=== PATIENT | female | born 1970 | race Caucasian/White ===

== ENCOUNTER 2017-10-22 14:05 | Emergency (ER) | payer MEDICAID ==
[2017-10-22 14:13] VITALS: BP 125/88; PULSE 68; RESP 18; TEMP 97.7; O2SAT 97
[2017-10-22] MEDS ORDERED: IPRATROPIUM/ALBUTEROL 3 ML DEYVIAL IH ONE (14:16)
--- NOTE | 2017-10-22 14:49 | EDPHY ---
H & P Time Seen by Provider: 10/22/17 14:10 HPI/ROS: 47-year-old female presents complaining of productive green cough. Patient is a daily smoker. History of COPD. Review of systems As per HPI General no fever no chills no weakness HEENT no eye pain no eye discharge. No eye redness, no sore throat Respiratory positive productive green cough, no shortness of breath Cardiac no chest pain, no peripheral edema GI no abdominal pain, no diarrhea, no constipation, no nausea, no vomiting no flank pain, no hematuria, no dysuria Musculoskeletal no myalgias, no joint pain Heme no easy bruising, no easy bleeding Endo no polyuria, no polydipsia Skin no rashes, no pruritus Neuro no syncope, no dizziness, no headaches Psych is no suicidal ideation, no homicidal ideation Past Medical/Surgical History: COPD Social History: Heavy tobacco use Smoking Status: Current every day smoker Physical Exam: 47-year-old female, harsh coarse cough Alert and oriented nontoxic appearance, no acute distress afebrile Atraumatic normocephalic Extraocular muscles intact, anicteric Nares mild green discharge Oropharynx mild erythema no tonsillar swelling no exudate no uvular deviation, tolerating own secretions Neck supple no lymphadenopathy Lungs scattered wheeze Heart regular rate and rhythm Abdomen normoactive bowel sounds soft nontender Extremities no cyanosis clubbing or edema Skin no rash Constitutional: Initial Vital Signs Temperature (C) 36.5 C 10/22/17 14:11 Heart Rate 68 10/22/17 14:11 Respiratory Rate 18 10/22/17 14:11 Blood Pressure 125/88 H 10/22/17 14:11 O2 Sat (%) 97 10/22/17 14:11 O2 Delivery Mode Room Air Allergies/Adverse Reactions: amoxicillin [Amoxicillin] Allergy (Intermediate, Verified 10/22/17 14:10) Hives azithromycin Allergy (Intermediate, Verified 10/22/17 14:10) Hives cefaclor [From Ceclor] Allergy (Intermediate, Verified 10/22/17 14:10) Hives cefixime [From Suprax] Allergy (Intermediate, Verified 10/22/17 14:10) Hives Penicillins Allergy (Intermediate, Verified 10/22/17 14:10) Hives Sulfa (Sulfonamide Antibiotics) Allergy (Intermediate, Verified 10/22/17 14:10) Hives Home Medications: Medication Instructions Recorded Albuterol 5 mg/ml INH 09/23/16 Albuterol Hfa Anes Only [Proair 2 puffs IH QID PRN #1 mdi 09/23/16 Hfa Icu (*)] Doxycycline Hyclate [Vibramycin 100 mg PO BID #20 cap 10/22/17 100 MG (*)] predniSONE 40 mg PO DAILY #5 tab 10/22/17 Medical Decision Making ED Course/Re-evaluation: Patient seen and evaluated for harsh cough. Impression acute bronchitis History of COPD Plan DuoNeb given in emergency department Patient to continue inhalers Prednisone 40 mg p.o. daily x5 days Doxycycline 100 mg p.o. twice daily times 10 days Follow-up with your regular clinic in 1-2 weeks Differential Diagnosis: Differential diagnosis considered but not limited to: URI, bronchitis, pneumonia - Data Points Medications Given: Discontinued Medications Albuterol/Ipratropium (Duoneb) 3 ml IH EDNOW ONE Stop: 10/22/17 14:17 Last Admin: 10/22/17 14:28 Dose: 3 ml Departure - Departure Disposition: Home, Routine, Self-Care Clinical Impression: Acute bronchitis Condition: Good Instructions: Acute Bronchitis (ED) Referrals: [facility],. [Primary Care Provider] - As per Instructions Prescriptions: Doxycycline Hyclate [Vibramycin 100 MG (*)] 100 mg PO BID #20 cap predniSONE 40 mg PO DAILY #5 tab
== END 2017-10-22 14:53 | disposition home or self-care (01) ==
LOC: CED 14:05
DX: J20.9 Acute bronchitis, unspecified (principal); J44.9 Chronic obstructive pulmonary disease, unspecified; F17.200 Nicotine dependence, unspecified, uncomplicated

== ENCOUNTER 2018-03-03 00:18 | Emergency (ER) | payer MEDICAID ==
--- NOTE | 2018-03-03 00:59 | EDPHY ---
H & P Time Seen by Provider: 03/03/18 00:30 HPI/ROS: CC: ate a small piece of raw chicken last night at work; employer wants note stating patient doesn't have salmonella HPI: This 47-year-old female presents to the emergency department today at the request of her employer (a [employer]) to rule out salmonella infection. The patient states she accidentally ingested a very small piece of raw chicken while at work approximately 26 hr ago. She states she had 1 loose stool but this has resolved. She has not had a fever, nausea, vomiting, abdominal pain or any other symptoms. They would like her to get a note that she can return to work. REVIEW OF SYSTEMS: Constitutional: No fever, no chills. Eyes: No discharge. ENT: No sore throat. Respiratory: No cough, no shortness of breath. Cardiac: No chest pain, no palpitations. Gastrointestinal: No abdominal pain, no vomiting. Genitourinary: No hematuria. Musculoskeletal: No back pain. Skin: No rashes. Neurological: No headache. Past Medical/Surgical History: PMH: Asthma PSH: Pyloric stenosis, tonsils and adenoids, ear surgery, tubal ligation FH: Mother - COPD; Father - HTN, brain cancer Allergies (multiple and reviewed). Meds: ProAir PCP: Dr. Twin You Social History: Tobacco 1/2 pk per day; No ETOH; nightly marijuana use Smoking Status: Current every day smoker Physical Exam: General Appearance: Alert, no distress. Eyes: Pupils equal and round no pallor or injection. ENT, Mouth: Mucous membranes are moist. Respiratory: There are no retractions, lungs are clear to auscultation. Cardiovascular: Regular rate and rhythm. Gastrointestinal: Abdomen is soft and nontender, no masses, bowel sounds normal. Neurological: Awake and alert, sensory and motor exams grossly normal. Skin: Warm and dry, no rashes. Musculoskeletal: Neck is supple nontender. Extremities are symmetrical, full range of motion. Psychiatric: Patient is oriented X 3, there is no agitation. DIFFERENTIAL DIAGNOSIS: After history and physical exam differential diagnosis was considered for but not limited to: normal exam, foodborne illness, salmonella Constitutional: Initial Vital Signs Temperature (C) 98.4 F 03/03/18 00:26 Heart Rate 80 03/03/18 00:26 Respiratory Rate 16 03/03/18 00:26 Blood Pressure 114/83 H 03/03/18 00:26 O2 Sat (%) 95 03/03/18 00:26 O2 Delivery Mode Room Air Allergies/Adverse Reactions: amoxicillin [Amoxicillin] Allergy (Intermediate, Verified 10/22/17 14:10) Hives azithromycin Allergy (Intermediate, Verified 10/22/17 14:10) Hives cefaclor [From Ceclor] Allergy (Intermediate, Verified 10/22/17 14:10) Hives cefixime [From Suprax] Allergy (Intermediate, Verified 10/22/17 14:10) Hives Penicillins Allergy (Intermediate, Verified 10/22/17 14:10) Hives Sulfa (Sulfonamide Antibiotics) Allergy (Intermediate, Verified 10/22/17 14:10) Hives Home Medications: Medication Instructions Recorded Albuterol 5 mg/ml INH 09/23/16 Albuterol Hfa Anes Only [Proair 2 puffs IH QID PRN #1 mdi 09/23/16 Hfa Icu (*)] Doxycycline Hyclate [Vibramycin 100 mg PO BID #20 cap 10/22/17 100 MG (*)] predniSONE 40 mg PO DAILY #5 tab 10/22/17 Medical Decision Making ED Course/Re-evaluation: The patient was seen examined. Vital signs reviewed. Prior records reviewed. The patient is having no symptoms currently and although unlikely to have salmonella, she will need to observe for symptoms for another 48 hrs (which would make 72 hrs total from the time of ingestion of raw chicken). If she remains symptom-free during this time it is unlikely that she has contracted salmonella and may return to work at the [employer]. If she develops symptoms she should follow up with her primary care provider for further evaluation and treatment as indicated. She was given a work excuse through 03/05/18. The patient was given two separate comprehensive reviews of salmonella intended for the general population for review. Departure - Departure Disposition: Home, Routine, Self-Care Clinical Impression: Work-related condition Condition: Good Additional Instructions: You should watch for symptoms as outlined in the handouts given to you for the next 48 hours. If symptoms develop, follow up with your primary care provider for further evaluation and release to go back to work at the appropriate time. If you have no symptoms in the next 48 hours (72 hours total from the time of ingestion), you are unlikely to have Salmonella. Referrals: Twin You MD [Medical Doctor] - As per Instructions Stand Alone Forms: Work Excuse
[2018-03-03 01:08] VITALS: BP 102/65
== END 2018-03-03 01:12 | disposition home or self-care (01) ==
LOC: CED 00:18
DX: Z56.89 Other problems related to employment (principal); J45.909 Unspecified asthma, uncomplicated; F17.200 Nicotine dependence, unspecified, uncomplicated

== ENCOUNTER 2018-08-16 09:58 | Emergency (ER) | payer MEDICAID ==
[2018-08-16] MEDS ORDERED: ACETAMINOPHEN 500 MG TAB PO ONE (10:58)
--- NOTE | 2018-08-16 11:01 | EDPHY ---
H & P Stated Complaint: right knee injury 2 days ago while running after cat. Time Seen by Provider: 08/16/18 10:03 HPI/ROS: 48-year-old female presents complaining of right lateral knee pain, for approximately 2 days she states she was running after a young get in and thinks she twisted her knee. No calf pain, no fevers or chills. Review of systems As per HPI General no fever no chills no weakness HEENT no eye pain no eye discharge. No eye redness, no sore throat Respiratory no cough, no shortness of breath Cardiac no chest pain, no peripheral edema GI no abdominal pain, no diarrhea, no constipation, no nausea, no vomiting no flank pain, no hematuria, no dysuria Musculoskeletal no myalgias, positive joint pain Heme no easy bruising, no easy bleeding Endo no polyuria, no polydipsia Skin no rashes, no pruritus Neuro no syncope, no dizziness, no headaches Psych is no suicidal ideation, no homicidal ideation Source: Patient Exam Limitations: No limitations - Personal History LMP (Females 10-55): 22-28 Days Ago Current Tetanus Diphtheria and Acellular Pertussis (TDAP): Yes Tetanus Vaccine Date: 2013 - Medical/Surgical History Hx Asthma: Yes Hx Chronic Respiratory Disease: No Hx Diabetes: No Hx Cardiac Disease: No Hx Renal Disease: No Hx Cirrhosis: No Hx Alcoholism: No Hx HIV/AIDS: No Hx Splenectomy or Spleen Trauma: No Other PMH: asthma, pre renal failure-CKD, laryngitis for a few months, tubal ligation, CHRONIC BRONCHITIS, tonsilectomy, eustachian tubes as child, pylostenosis - Family History Significant Family History: No pertinent family hx - Social History Smoking Status: Heavy smoker Alcohol Use: None Drug Use: None - Physical Exam Exam: 48-year-old female alert and oriented no acute distress nontoxic appearance Afebrile Atraumatic normocephalic Neck no JVD Lungs clear to auscultation, no respiratory distress Heart regular rate and rhythm Extremities no cyanosis clubbing edema Right knee-no swelling, no erythema, full range of motion positive tenderness at lateral aspect no laxity, negative anterior posterior drawer no popliteal tenderness or fullness, distal pulses intact no calf swelling or calf tenderness Constitutional: Initial Vital Signs Temperature (C) 36.5 C 08/16/18 10:03 Heart Rate 67 08/16/18 10:03 Respiratory Rate 18 08/16/18 10:03 Blood Pressure 116/57 L 08/16/18 10:03 O2 Sat (%) 94 08/16/18 10:03 O2 Delivery Mode Room Air Allergies/Adverse Reactions: amoxicillin [Amoxicillin] Allergy (Intermediate, Verified 08/16/18 10:09) Hives azithromycin Allergy (Intermediate, Verified 08/16/18 10:09) Hives cefaclor [From Ceclor] Allergy (Intermediate, Verified 08/16/18 10:09) Hives cefixime [From Suprax] Allergy (Intermediate, Verified 08/16/18 10:09) Hives Penicillins Allergy (Intermediate, Verified 08/16/18 10:09) Hives Sulfa (Sulfonamide Antibiotics) Allergy (Intermediate, Verified 08/16/18 10:09) Hives Home Medications: Medication Instructions Recorded Albuterol Hfa Anes Only [Proair 2 puffs IH QID PRN #1 mdi 09/23/16 Hfa Icu (*)] Advair 250/50 (*) 08/16/18 Medical Decision Making - Diagnostics Imaging Results: Imaging Impressions Knee X-Ray 08/16/18 10:14 Impression: Negative right knee radiographs. ED Course/Re-evaluation: Patient seen and evaluated for right knee pain x2 days. Exam consistent with lateral knee sprain/strain X-ray negative Impression Right knee lateral sprain Plan Neoprene knee brace Acetaminophen as needed for pain Follow-up with primary care physician at [facility] Differential Diagnosis: Differential diagnosis considered but not limited to: Patellar fracture, tib-fib fracture, patellar dislocation, knee effusion, knee strain, knee sprain, bipartite patella, osteoarthritis of the knee - Data Points Medications Given: Discontinued Medications Acetaminophen (Tylenol) 1,000 mg PO EDNOW ONE Stop: 08/16/18 10:59 Last Admin: 08/16/18 11:14 Dose: 1,000 mg Departure - Departure Disposition: Home, Routine, Self-Care Clinical Impression: Right knee sprain Condition: Good Instructions: Knee Sprain (ED) Additional Instructions: Rest, ice, elevate when not walking Follow up at your clinic if not improving in 1-2 weeks Referrals: [facility] [Other] - As per Instructions
[2018-08-16 11:42] VITALS: BP 138/79
== END 2018-08-16 11:25 | disposition home or self-care (01) ==
LOC: CED 09:58
DX: S83.91XA Sprain of unspecified site of right knee, initial encounter (principal); Y93.01 Activity, walking, marching and hiking; X50.0XXA Overexertion from strenuous movement or load, initial encounter; F17.200 Nicotine dependence, unspecified, uncomplicated
CPT/HCPCS: 73564-PO; L1830

== ENCOUNTER 2018-08-30 16:59 | Emergency (ER) | payer MEDICAID ==
[2018-08-30] MEDS ORDERED: ACETAMINOPHEN 500 MG TAB PO ONE (17:35)
--- NOTE | 2018-08-30 18:09 | EDPHY ---
H & P Time Seen by Provider: 08/30/18 17:01 HPI/ROS: CHIEF COMPLAINT: Left ankle and foot pain History by patient HISTORY OF PRESENT ILLNESS: 40-year-old woman presents complaining of acute onset left ankle foot pain. Patient states she was walking to work when her left ankle"gave out"she had eversion injury with a sudden onset of pain. She denies any direct trauma to the top of her foot. She went to work at [employer] but was having too much pain standing and so sought medical attention. Patient recently injured her right knee and is wearing a brace on that knee. REVIEW OF SYSTEMS: As in HPI, and all other systems reviewed and are negative Smoking Status: Heavy smoker Physical Exam: General Appearance: Alert and no distress. Head: Normocephalic, atraumatic Eyes: Pupils equal and round no injection. Extraocular movements are intact. Musculoskeletal: Neck is supple and nontender. Extremities: Left ankle with no swelling and full range of motion, no lateral or malleolar posterior tenderness, no proximal fibular tenderness, positive swelling ecchymoses over the dorsum of the midfoot with tenderness, distal sensation is intact, DP pulses 2+ and equal to the right, patient can wiggle her toes.. Skin: No rashes or lesions except as described above. Constitutional: Initial Vital Signs Temperature (C) 36.9 C 08/30/18 17:04 Heart Rate 80 08/30/18 17:04 Respiratory Rate 16 08/30/18 17:04 Blood Pressure 128/74 H 08/30/18 17:04 O2 Sat (%) 95 08/30/18 17:04 O2 Delivery Mode Room Air Allergies/Adverse Reactions: amoxicillin [Amoxicillin] Allergy (Verified 08/30/18 17:05) Hives azithromycin Allergy (Verified 08/30/18 17:05) Pt reports Hives cefaclor [From Ceclor] Allergy (Verified 08/30/18 17:05) Pt reports Hives cefixime [From Suprax] Allergy (Verified 08/30/18 17:05) Pt reports Hives Penicillins Allergy (Verified 08/30/18 17:05) Pt reports Hives Sulfa (Sulfonamide Antibiotics) Allergy (Verified 08/30/18 17:05) PT reports Hives Home Medications: Medication Instructions Recorded Albuterol Hfa Anes Only [Proair 2 puffs IH QID PRN #1 mdi 09/23/16 Hfa Icu (*)] Advair 250/50 (*) 08/16/18 MDM/Departure - MDM Imaging Results: Imaging Impressions Foot X-Ray 08/30/18 17:35 Impression: Negative for fracture. See above report for additional findings. Medications Given: Discontinued Medications Acetaminophen (Tylenol) 1,000 mg PO EDNOW ONE Stop: 08/30/18 17:36 Last Admin: 08/30/18 17:51 Dose: 1,000 mg ED Course/Re-evaluation: 40-year-old woman presents with injury to left foot and ankle. There is no indication for ankle x-ray by [place] rules. Foot x-ray was obtained because of the large contusion on her foot. X-ray shows no evidence of fracture. Patient was given Tylenol with some improvement in her pain. The she is discharged home in stable condition. - Depart Disposition: Home, Routine, Self-Care Clinical Impression: Contusion of foot, left Qualifiers: Encounter type: initial encounter Qualified Code(s): S90.32XA - Contusion of left foot, initial encounter Condition: Good Instructions: Foot Contusion (ED) Additional Instructions: You were seen by Dr. Venessa Wheeler today. You may take Tylenol as needed for pain and ice her foot for pain. You may put as much weight on it as you can tolerate. You will not make things worse by walking on it. Return for any worsening or new concerns. Stand Alone Forms: Work Excuse Referrals: [facility],. [Primary Care Provider] - As per Instructions
[2018-08-30 18:25] VITALS: BP 131/85
== END 2018-08-30 18:16 | disposition home or self-care (01) ==
LOC: CED 16:59
DX: S90.32XA Contusion of left foot, initial encounter (principal); X50.9XXA Other and unspecified overexertion or strenuous movements or postures, initial encounter; Y92.9 Unspecified place or not applicable; Y93.9 Activity, unspecified; Y99.9 Unspecified external cause status
CPT/HCPCS: 73630-PO

== ENCOUNTER 2018-10-03 18:42 | Emergency (ER) | payer MEDICAID ==
[2018-10-03] MEDS ORDERED: HYDROCODONE/APAP 5/325 TAB PO ONE (18:53)
[2018-10-03] MEDS ORDERED: IBUPROFEN 600 MG TAB PO ONE (18:53)
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
[2018-10-03 20:14] VITALS: BP 137/87
== END 2018-10-03 20:06 | disposition home or self-care (01) ==
LOC: EDUNIT# → EDBD
DX: S02.2XXA Fracture of nasal bones, initial encounter for closed fracture (principal); S80.11XA Contusion of right lower leg, initial encounter; S80.12XA Contusion of left lower leg, initial encounter; V03.99XA Pedestrian with other conveyance injured in collision with car, pick-up truck or van, unspecified whether traffic or nontraffic accident, initial encounter; Y92.481 Parking lot as the place of occurrence of the external cause; Y93.9 Activity, unspecified; Y99.9 Unspecified external cause status

== ENCOUNTER 2018-10-26 11:04 | Emergency (ER) | payer MEDICAID ==
[~2018-10-26 11:04] MED LIST: predniSONE 20 MG TAB PO SCH
[2018-10-26] MEDS ORDERED: predniSONE 20 MG TAB PO ONE (11:31)
[2018-10-26] MEDS ORDERED: IPRATROPIUM/ALBUTEROL 3 ML DEYVIAL IH ONE (11:31)
--- NOTE | 2018-10-26 11:33 | EDPHY ---
H & P Stated Complaint: On doxycyline from PC; wants check for PNA Time Seen by Provider: 10/26/18 11:11 HPI/ROS: CHIEF COMPLAINT: Dyspnea HISTORY OF PRESENT ILLNESS: The patient presents the ED with worsening dyspnea. She has had a productive cough for the past 10 days. She has a history of chronic bronchitis. She saw her primary care provider who started her on doxycycline 4 days ago. She denies significant improvement of her symptoms. She is continue to use her albuterol several times a day. She does have a history of asthma. She is not currently taking prednisone. The patient denies any asymmetric calf pain or swelling. She denies any additional complaints of abdominal pain or vomiting. REVIEW OF SYSTEMS: A comprehensive 10 point review of systems is otherwise negative aside from elements mentioned in the history of present illness. Source: Patient - Personal History LMP (Females 10-55): Irregular Current Tetanus Diphtheria and Acellular Pertussis (TDAP): Yes Tetanus Vaccine Date: 2013 - Medical/Surgical History Hx Asthma: Yes Hx Chronic Respiratory Disease: No Hx Diabetes: No Hx Cardiac Disease: No Hx Renal Disease: Yes Hx Cirrhosis: No Hx Alcoholism: No Hx HIV/AIDS: No Hx Splenectomy or Spleen Trauma: No Other PMH: asthma, pre renal failure-CKD, laryngitis for a few months, tubal ligation, CHRONIC BRONCHITIS, tonsilectomy, eustachian tubes as child, pylostenosis - Social History Smoking Status: Current every day smoker - Physical Exam Exam: General Appearance: Alert, no distress Eyes: Pupils equal and round no pallor or injection ENT, Mouth: Mucous membranes moist Respiratory: Rhonchorous breath sounds bilaterally, expiratory wheezing noted Cardiovascular: Regular rate and rhythm Gastrointestinal: Abdomen is soft and nontender, no masses, bowel sounds normal Neurological: 5/5 strength noted all 4 extremities Skin: Warm and dry, no rashes Musculoskeletal: Neck is supple nontender Extremities: symmetrical, full range of motion Psychiatric: Patient is oriented X 3, there is no agitation Constitutional: Initial Vital Signs Temperature (C) 37.3 C 10/26/18 11:05 Heart Rate 90 10/26/18 11:05 Respiratory Rate 18 10/26/18 11:05 Blood Pressure 139/78 H 10/26/18 11:05 O2 Sat (%) 91 L 10/26/18 11:05 O2 Delivery Mode Room Air Allergies/Adverse Reactions: amoxicillin [Amoxicillin] Allergy (Verified 10/26/18 11:05) Hives azithromycin Allergy (Verified 10/26/18 11:05) Pt reports Hives cefaclor [From Ceclor] Allergy (Verified 10/26/18 11:05) Pt reports Hives cefixime [From Suprax] Allergy (Verified 10/26/18 11:05) Pt reports Hives Penicillins Allergy (Verified 10/26/18 11:05) Pt reports Hives Sulfa (Sulfonamide Antibiotics) Allergy (Verified 10/26/18 11:05) PT reports Hives Home Medications: Medication Instructions Recorded Albuterol Hfa Anes Only [Proair 2 puffs IH QID PRN #1 mdi 09/23/16 Hfa Icu (*)] Advair 250/50 (*) 08/16/18 Doxycycline Hyclate [Vibramycin 100 mg PO 10/26/18 100 MG (*)] predniSONE [prednisone 20mg (RX)] 3 tab PO DAILY #15 tab 10/26/18 Medical Decision Making - Diagnostics Imaging Results: Imaging Impressions Chest X-Ray 10/26/18 11:31 Impression: Mild bronchitis. No other findings for acute cardiopulmonary abnormality. ED Course/Re-evaluation: The patient presents the ED with acute dyspnea in the setting of an upper respiratory infection. She is currently on doxycycline. Patient was given prednisone for wheezing and a history of reactive airway disease. She was also given an DuoNeb nebulizer in the ED. Patient's chest x-ray demonstrates no evidence of an obvious pneumonia. She is hemodynamically stable. I will add prednisone on to the patient's outpatient regimen. The patient will be discharged from the emergency department in stable condition. Differential Diagnosis: Differential diagnosis considered includes asthma, bronchitis, pneumonia Departure - Departure Disposition: Home, Routine, Self-Care Clinical Impression: Acute bronchitis Condition: Good Instructions: Acute Bronchitis (ED) Additional Instructions: 1. Your chest x-ray demonstrates no evidence of a significant pneumonia. 2. Please use prednisone as directed for next 5 days. 3. Please continue albuterol inhaler up to every 2 hr as needed for cough. Referrals: [facility],. [Clinic] - As per Instructions
[2018-10-26] MEDS ORDERED: ALBUTEROL 3 ML DEYVIAL IH ONE (12:43)
[2018-10-26 13:05] VITALS: BP 135/93
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
== END 2018-10-26 13:05 | disposition home or self-care (01) ==
DX: J40 Bronchitis, not specified as acute or chronic (principal); R06.00 Dyspnea, unspecified
CPT/HCPCS: J7512; J7613

== ENCOUNTER 2018-11-02 11:29 | Inpatient (IN) | payer MEDICAID ==
--- NOTE | 2018-11-02 11:53 | EDPHY ---
General Time Seen by Provider: 11/02/18 11:39 Initial Vital Signs: Initial Vital Signs Temperature (C) 37.2 C 11/02/18 11:34 Heart Rate 118 H 11/02/18 11:34 Respiratory Rate 28 H 11/02/18 11:34 Blood Pressure 121/76 H 11/02/18 11:34 O2 Sat (%) 82 L 11/02/18 11:34 O2 Delivery Mode Room Air Allergies/Adverse Reactions: amoxicillin [Amoxicillin] Allergy (Verified 10/26/18 11:05) Hives azithromycin Allergy (Verified 10/26/18 11:05) Pt reports Hives cefaclor [From Ceclor] Allergy (Verified 10/26/18 11:05) Pt reports Hives cefixime [From Suprax] Allergy (Verified 10/26/18 11:05) Pt reports Hives Penicillins Allergy (Verified 10/26/18 11:05) Pt reports Hives Sulfa (Sulfonamide Antibiotics) Allergy (Verified 10/26/18 11:05) PT reports Hives Home Medications: Medication Instructions Recorded Albuterol Hfa Anes Only [Proair 2 puffs IH QID PRN #1 mdi 09/23/16 Hfa Icu (*)] Advair 250/50 (*) 08/16/18 Departure - Departure Referrals: NONE *PRIMARY CARE P,. [Primary Care Provider] - As per Instructions
--- NOTE | 2018-11-02 12:01 | EDPHY ---
H & P Stated Complaint: sob, cough, chest tightness worsening over days Time Seen by Provider: 11/02/18 11:39 - Personal History LMP (Females 10-55): Unknown Tetanus Vaccine Date: 2013 - Medical/Surgical History Hx Asthma: Yes Hx Chronic Respiratory Disease: No Hx Diabetes: No Hx Cardiac Disease: No Hx Renal Disease: Yes Hx Cirrhosis: No Hx Alcoholism: No Hx HIV/AIDS: No Hx Splenectomy or Spleen Trauma: No Other PMH: asthma, CKD, tubal ligation, CHRONIC BRONCHITIS, eustachian tubes as child - Social History Smoking Status: Current every day smoker Constitutional: Initial Vital Signs Temperature (C) 37.2 C 11/02/18 11:34 Heart Rate 118 H 11/02/18 11:34 Respiratory Rate 28 H 11/02/18 11:34 Blood Pressure 121/76 H 11/02/18 11:34 O2 Sat (%) 82 L 11/02/18 11:34 O2 Delivery Mode Room Air O2 (L/minute) 4 Allergies/Adverse Reactions: amoxicillin [Amoxicillin] Allergy (Verified 10/26/18 11:05) Hives azithromycin Allergy (Verified 10/26/18 11:05) Pt reports Hives cefaclor [From Ceclor] Allergy (Verified 10/26/18 11:05) Pt reports Hives cefixime [From Suprax] Allergy (Verified 10/26/18 11:05) Pt reports Hives Penicillins Allergy (Verified 10/26/18 11:05) Pt reports Hives Sulfa (Sulfonamide Antibiotics) Allergy (Verified 10/26/18 11:05) PT reports Hives Home Medications: Medication Instructions Recorded Albuterol Hfa Anes Only [Proair 2 puffs IH QID PRN #1 mdi 09/23/16 Hfa Icu (*)] Advair 250/50 (*) 08/16/18 Medical Decision Making ED Course/Re-evaluation: CHIEF COMPLAINT: Cough, weakness, chest pain HISTORY OF PRESENT ILLNESS: The patient is a homeless 48 y/o female with a history asthma complaining of cough, chest pain, and weakness. About 10 days ago , she developed cold and flu symptoms such as cough and increased mucus production. Over the past few days her cough, chest pain, and weakness have persisted and worsened, prompting her visit. She has associated difficulty breathing and fatigue. She denies any other associated symptoms. She denies smoking. REVIEW OF SYSTEMS: A 10 system review of systems was performed and is negative with the exception of the elements mentioned in the history of present illness. PHYSICAL EXAM: HR, BP, O2 Sat, RR. Temp noted General Appearance: Alert, well hydrated, appropriate, and non-toxic appearing. Head: Atraumatic without scalp tenderness or obvious injury Eyes: Pupils equal, round, reactive to light and accommodation, EOMI, no trauma , no injection. Ears: Clear bilaterally, no perforation, normal landmarks Nose: Atraumatic, no rhinorrhea, clear. Throat: There is no erythema or exudates, no lesions, normal tonsils, mucus membranes moist. Neck: Supple, 2+ carotid upstroke, nontender, no lymphadenopathy. Respiratory: Decreased breath sound bilaterally. No retractions, no distress, no wheezes, and no accessory muscle use. Cardiovascular: Regular rate and rhythm, no murmurs, rubs, or gallops.Good capillary refill all extremities. Gastrointestinal: Abdomen is soft, nontender, non-distended, no masses, no rebound, no guarding, no peritoneal signs. Musculoskeletal: Normal active ROM of all extremities, atraumatic. Neurological: Alert, appropriate, and interactive. Skin: No rashes, good turgor, no nodules on palpation. Past medical history: Asthma, chronic kidney disease, chronic bronchitis Past surgical history: Tubal ligation Family history: Non-contributory Social history: Homeless, unemployed, friend at bedside DIAGNOSTICS/PROCEDURES/CRITICAL CARE TIME: The 12 lead EKG was interpreted by myself. See hard copy and/or "tracemaster" electronic copy for interpretation. Sinus tachycardia Study: PA and Lateral Chest X-ray Indication: Chest pain Results: After viewing the images myself on the PACS system. My interpretation of the images is: pneumonia. The radiologist interpretation is pending at the time of this dictation. DIFFERENTIAL DIAGNOSIS: The differential diagnosis for the patient's shortness of breath and hypoxemia included but was not limited to pneumonia, myocardial infarction, acute mountain sickness, high altitude pulmonary edema, congestive heart failure, and pulmonary embolus. MEDICAL DECISION MAKING: The patient presents with a cough, shortness of breath , and weakness, acute onset 10 days ago with a cold. On exam, she has decreased breath sounds bilaterally. Plan for chest x-ray to evaluate for pneumonia and extensive labs including CBC, basic metabolic panel, lactic acid, bilirubin, coagulation panel, cultures, and respiratory pathogens. EKG is sinus tachycardia. 12:40 PM - The x-ray is indicative of pneumonia. At this time she does not meet sepsis criteria. I spoke with the hospitalist service and she will be admitted to Dr. Soliman. - Data Points Laboratory Results: Laboratory Results 11/02/18 11:57 11/02/18 11:57 11/02/18 11/02/18 11/02/18 12:07 11:57 11:57 WBC 11.78 10^3/uL H 10^3/uL (3.80-9.50) RBC 4.73 10^6/uL 10^6/uL (4.18-5.33) Hgb 13.7 g/dL g/dL (12.6-16.3) Hct 40.0 % % (38.0-47.0) MCV 84.6 fL fL (81.5-99.8) MCH 29.0 pg pg (27.9-34.1) MCHC 34.3 g/dL g/dL (32.4-36.7) RDW 13.5 % % (11.5-15.2) Plt Count 370 10^3/uL 10^3/uL (150-400) MPV 9.8 fL fL (8.7-11.7) Neut % (Auto) Pending Lymph % (Auto) Pending [place] % (Auto) Pending Eos % (Auto) Pending Baso % (Auto) Pending Nucleat RBC Rel Count Pending Absolute Neuts (auto) Pending Absolute Lymphs (auto) Pending Absolute Monos (auto) Pending Absolute Eos (auto) Pending Absolute Basos (auto) Pending Absolute Nucleated RBC Pending Immature Gran % Pending Immature Gran # Pending Platelet Estimate Pending PT 14.9 SEC SEC (12.0-15.0) INR 1.15 (0.83-1.16) APTT 29.2 SEC SEC (23.0-38.0) VBG Lactic Acid Sodium Potassium Chloride Carbon Dioxide Anion Gap BUN Creatinine Estimated GFR Glucose Calcium Total Bilirubin Nasal Influenza A PCR Pending Nasal Influenza B PCR Pending 11/02/18 11/02/18 11:57 11:57 WBC RBC Hgb Hct MCV MCH MCHC RDW Plt Count MPV Neut % (Auto) Lymph % (Auto) [place] % (Auto) Eos % (Auto) Baso % (Auto) Nucleat RBC Rel Count Absolute Neuts (auto) Absolute Lymphs (auto) Absolute Monos (auto) Absolute Eos (auto) Absolute Basos (auto) Absolute Nucleated RBC Immature Gran % Immature Gran # Platelet Estimate PT INR APTT VBG Lactic Acid 2.7 mmol/L H mmol/L (0.7-2.1) Sodium 136 mEq/L mEq/L (135-145) Potassium 3.4 mEq/L L mEq/L (3.5-5.2) Chloride 101 mEq/L mEq/L (97-110) Carbon Dioxide 24 mEq/l mEq/l (22-31) Anion Gap 11 mEq/L mEq/L (6-14) BUN 15 mg/dL mg/dL (7-23) Creatinine 1.1 mg/dL H mg/dL (0.6-1.0) Estimated GFR 53 Glucose 97 mg/dL mg/dL (70-100) Calcium 8.8 mg/dL mg/dL (8.5-10.4) Total Bilirubin 1.0 mg/dL mg/dL (0.1-1.4) Nasal Influenza A PCR Nasal Influenza B PCR Departure - Departure Disposition: [facility] Inpatient Acute Clinical Impression: Pneumonia Qualifiers: Pneumonia type: due to unspecified organism Laterality: right Lung location: unspecified part of lung Qualified Code(s): J18.9 - Pneumonia, unspecified organism Condition: Fair Report Scribed for: Arnulfo Jackson Report Scribed by: Ely Taylor Date of Report: 11/02/18 Time of Report: 12:43
[2018-11-02 12:10] LABS: PLATELET COUNT 370 10^3/uL (150-400)
[2018-11-02 12:21] LABS: INR 1.15 (0.83-1.16); PROTIME(PATIENT) 14.9 SEC (12.0-15.0)
[2018-11-02] MEDS ORDERED: levOFLOXACIN 500 MG/DEXTROSE 100 ML IV ONE (12:42)
[2018-11-02] MEDS ORDERED: ACETAMINOPHEN 325 MG TAB PO PRN (14:16)
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
[2018-11-02] MEDS ORDERED: ONDANSETRON 4 MG/2 ML VIAL IVP PRN (14:17)
[2018-11-02] MEDS ORDERED: BENZONATATE 100 MG CAP PO PRN (14:19)
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
--- NOTE | 2018-11-02 14:56 | ASMTLACE ---
NILS Acuity / Level of Answers: Yes Care: Did the patient have an inpatient admission? Comorbidities - select Answers: Chronic pulmonary disease all that apply Moderate or severe liver or renal disease # of Emergency department Answers: 5-8 visits in the last 6 months Social determinants Answers: Homelessness (street, jail) Lack of community resources and/or lack of social support (no pcp, lives alone, transportation, zelda d) Score: 20 Date Signed: 11/02/2018 02:55 PM Electronically Signed By:Teresa Noe RN
--- NOTE | 2018-11-02 15:02 | PDMN ---
Medical Necessity Medical necessity: Pt meets INPT criteria per MD as of 11/02/18 and MCG [id number] Pneumonia, Community Acquired (est. LOS >2 MN for eval/tx of pneumonia with acute hypoxemic respiratory failure and acute sepsis; req IVABx and IV hydration , bronchodilators; comorbid asthma).
[2018-11-02] MEDS ORDERED: NS 1,000 ML IV ONE (15:10)
[2018-11-02] MEDS ORDERED: IPRATROPIUM/ALBUTEROL 3 ML DEYVIAL ONE (15:47)
[2018-11-02] MEDS: IPRATROPIUM/ALBUTEROL 3 ML DEYVIAL IH SCH ×2 (15:55→20:19)
[2018-11-02] MEDS: predniSONE 20 MG TAB PO SCH (16:13)
[2018-11-02] MEDS: NS 1,000 ML IV SCH (16:14)
[2018-11-02] MEDS: FLUTICASONE/SALMETER 250/50MCG DISKUS IH SCH (20:16)
[2018-11-02] MEDS: MELATONIN 3 MG TAB PO SCH (20:37)
[2018-11-03] MEDS ORDERED: VANCOMYCIN 1.5 GM in D5W 250 ML IV SCH (02:00)
[2018-11-03] MEDS: NS 1,000 ML IV SCH ×2 (04:15→18:20)
[2018-11-03 05:33] LABS: PLATELET COUNT 295 10^3/uL (150-400)
[2018-11-03] MEDS: IPRATROPIUM/ALBUTEROL 3 ML DEYVIAL IH SCH ×4 (05:42→21:24)
[2018-11-03] MEDS: predniSONE 20 MG TAB PO SCH (07:43)
[2018-11-03] MEDS: ENOXAPARIN 40 MG/0.4 ML SYR SC SCH (07:43)
[2018-11-03] MEDS: ACETAMINOPHEN 325 MG TAB PO PRN ×2 (07:43→18:25)
[2018-11-03] MEDS: FLUTICASONE/SALMETER 250/50MCG DISKUS IH SCH ×2 (10:53→21:20)
[2018-11-03] MEDS: guaiFENesin/CODEINE PHOS 10 ML UDCUP PO PRN ×2 (13:29→21:19)
--- NOTE | 2018-11-03 14:13 | HOSPPROG ---
Hospitalist Progress Note Assessment/Plan: Sepsis (Acute) - Presenting with cough, weakness - CXR shows R sided infiltrate on admission - S/p IVF - Started on Levaquin, Day 2 - Blood cultures growing Strep Pneumo - Consulted ID this AM, discussed with Dr. Cyr, who will see patient, await recommendations Bacteremia - Positive blood culture as above - Currently on Levaquin IV, will await ID recommendations for changing antibiotic regimen Acute hypoxemic respiratory failure - 2/2 to PNA, viral syndrome, asthma exacerbation - Wean 02 as tolerated Acute community-acquired, likely postviral, right lung pneumonia - CXR shows R sided infiltrate on admission - Management as above Adenovirus infection causing URI and diarrhea - Supportive management with IVF, antitussive, antidiarrheal Asthma Exacerbation - Started on Prednisone 20 mg qd, nebs on admission, will continue FEN: Regular, IVF Code: FULL DVT PPx: Lovenox Dispo: Pending clinical course Subjective: Pateint reports some improvement in breathing overnight Objective: Vital Signs Temp Pulse Resp BP Pulse Ox 36.5 C 75 16 108/67 96 11/03/18 11:18 11/03/18 11:18 11/03/18 11:18 11/03/18 11:18 11/03/18 11:18 Microbiology 11/02/18 15:20 Gastrointestinal Tract Panel (PCR) - Final Stool No Organism Detected By Pcr Laboratory Results 11/03/18 04:20 11/03/18 04:20 11/02/18 11/03/18 11/04/18 05:59 05:59 05:59 Intake Total 1600 700 Output Total 1650 1200 Balance -50 -500 PT 14.9 SEC (12.0-15.0) 11/02/18 11:57 INR 1.15 (0.83-1.16) 11/02/18 11:57 - Physical Exam Constitutional: chronically ill appearing, unkempt Eyes: PERRL Ears, Nose, Mouth, Throat: moist mucous membranes Cardiovascular: regular rate and rhythym Respiratory: no respiratory distress, reduced air movement, expiratory wheeze Gastrointestinal: soft, non-tender abdomen Skin: warm Neurologic: AAOx3 Psychiatric: interacting appropriately ICD10 Worksheet Patient Problems: Problems Problem Status Onset Pneumonia Acute Asthma exacerbation Acute
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
[2018-11-03] MEDS: MELATONIN 3 MG TAB PO SCH (21:20)
[2018-11-04] MEDS: IPRATROPIUM/ALBUTEROL 3 ML DEYVIAL IH SCH ×3 (05:59→16:55)
[2018-11-04 06:44] LABS: PLATELET COUNT 224 10^3/uL (150-400)
[2018-11-04] MEDS: predniSONE 20 MG TAB PO SCH (08:56)
[2018-11-04] MEDS: ENOXAPARIN 40 MG/0.4 ML SYR SC SCH (08:56)
[2018-11-04] MEDS: FLUTICASONE/SALMETER 250/50MCG DISKUS IH SCH ×2 (08:57→20:25)
--- NOTE | 2018-11-04 11:18 | HOSPPROG ---
Hospitalist Progress Note Assessment/Plan: Sepsis (Acute) - Presenting with cough, weakness - CXR shows R sided infiltrate on admission - S/p IVF - Started on Levaquin, Day 3 - Blood cultures growing Strep Pneumo - Consulted ID, recommending continuing Levaquin, transition to PO when appropriate Bacteremia - Positive blood culture as above - Currently on Levaquin IV, as above Acute hypoxemic respiratory failure - 2/2 to PNA, viral syndrome, asthma exacerbation - Wean 02 as tolerated Acute community-acquired, likely postviral, right lung pneumonia - CXR shows R sided infiltrate on admission - Management as above Adenovirus infection causing URI and diarrhea - Supportive management with IVF, antitussive, antidiarrheal Asthma Exacerbation - Started on Prednisone 20 mg qd (day 3), nebs on admission, will increase to 40 mg FEN: Regular, IVF Code: FULL DVT PPx: Lovenox Dispo: Pending clinical course Subjective: Patient reports some improvement in cough this AM Objective: Vital Signs Temp Pulse Resp BP Pulse Ox 36.3 C 88 16 137/86 H 92 11/04/18 08:00 11/04/18 10:51 11/04/18 10:51 11/04/18 08:00 11/04/18 10:51 Laboratory Results 11/04/18 04:37 11/03/18 04:20 11/03/18 11/04/18 11/05/18 05:59 05:59 05:59 Intake Total 1600 3760 Output Total 1650 4500 1100 Balance -50 -740 -1100 PT 14.9 SEC (12.0-15.0) 11/02/18 11:57 INR 1.15 (0.83-1.16) 11/02/18 11:57 - Physical Exam Constitutional: chronically ill appearing, unkempt Eyes: PERRL Ears, Nose, Mouth, Throat: moist mucous membranes Cardiovascular: regular rate and rhythym Respiratory: reduced air movement Skin: normal color Musculoskeletal: full muscle strength Neurologic: AAOx3 Psychiatric: interacting appropriately ICD10 Worksheet Patient Problems: Problems Problem Status Onset Pneumonia Acute Asthma exacerbation Acute
[2018-11-04] MEDS: guaiFENesin/CODEINE PHOS 10 ML UDCUP PO PRN ×2 (12:49→20:22)
--- NOTE | 2018-11-04 17:25 | PCMIDPN ---
Assessment/Plan: #Multilobar PNA and bacteremia with pneumococcus, dramatically abn exam R chest , with pleural rub and still high O2 requirement at 4L. Reviewed CXR from admit --pneumococcal sensi pending --repeat blood cx collected today --check CT scan w contrast --ok to change to PO levofloxacin as tolerating PO --check repeat CBC and collect CMP, HIV screen # Upper chest pinkness: no other rash anywhere else, will continue to monitor #PCN, cephlosporins: hives; azithromycin -->hives, SOB --discussed potential need to change to cephalosporin in case of resistance to FQ meds Levofloxacin 750mg IV daily #3 Microbiology 11/02/18 12:07 Respiratory Panel (PCR) Adenovirus 11/02/18 11:57 Blood cx: 2/2 Streptococcus Pneumoniae \ Subjective: still with significant SOB Chest pressure better than admit Fairly dry cough, feels like she wants to bring something up denies diarrhea, rash Objective: Vital Signs Temp Pulse Resp BP Pulse Ox 36.8 C 89 14 128/79 H 96 11/04/18 15:40 11/04/18 16:57 11/04/18 16:57 11/04/18 15:40 11/04/18 16:57 Laboratory Results 11/04/18 04:37 11/03/18 04:20 11/03/18 11/04/18 11/05/18 05:59 05:59 05:59 Intake Total 1600 3760 Output Total 1650 4500 1600 Balance -50 -740 -1600 - Physical Exam General Appearance: alert, thin EENT: other (fair dentition, no thrush) Respiratory: crackles (R mid lung), other (absent breath sound R base with pleural rub) Cardiac/Chest: regular rate, rhythm, No systolic murmur Extremities: No pedal edema Abdomen: normal bowel sounds, non-tender, soft Pelvic Exam: No steven Skin: warm/dry, other (blanching pinkness upper chest), No rash Neuro/Psych: alert, normal mood/affect, oriented x 3 - Time Spent With Patient Time Spent with Patient: greater than 35 minutes Time Spent with Patient: Greater than 35 minutes spent on this patients care, greater than 50% of time spent counseling, educating, and coordinating care regarding the above mentioned plan. ICD10 Worksheet Patient Problems: Problems Problem Status Onset Pneumonia Acute Asthma exacerbation Acute
[2018-11-04] MEDS ORDERED: IOPAMIDOL (ISOVUE 370) 100 ML BTL IV ONE (17:58)
[2018-11-04 19:44] LABS: PLATELET COUNT 223 10^3/uL (150-400)
[2018-11-04] MEDS: ACETAMINOPHEN 325 MG TAB PO PRN (20:24)
[2018-11-04] MEDS: MELATONIN 3 MG TAB PO SCH (20:24)
[2018-11-04] MEDS: ENOXAPARIN 80 MG/0.8 ML SYR SC SCH (20:25)
[2018-11-04 20:57] LABS: HIV TYPE 1 AND 2 NEGATIVE (NEGATIVE)
[2018-11-05] MEDS: IPRATROPIUM/ALBUTEROL 3 ML DEYVIAL IH SCH ×5 (00:20→21:33)
[2018-11-05] MEDS: FLUTICASONE/SALMETER 250/50MCG DISKUS IH SCH ×2 (09:37→21:34)
[2018-11-05] MEDS: ENOXAPARIN 80 MG/0.8 ML SYR SC SCH ×2 (09:43→20:56)
[2018-11-05] MEDS: predniSONE 20 MG TAB PO SCH (09:44)
--- NOTE | 2018-11-05 10:51 | ASMTCMCOM ---
CM Note CM Note Notes: Pt's IV meds have been changed to PO. Pt told CM that she had spoken to Meera Carter and now hopes to d/c to a motel which [facility] would pay for. Meera's notes confirmed that ths has been spoken about with pt. CM notified Alissa and Gali to understand if this was in fact something that can be planned for. D/C Plan: TBD Date Signed: 11/05/2018 10:50 AM Electronically Signed By:Sandra Mcdonough
[2018-11-05] MEDS: ACETAMINOPHEN 325 MG TAB PO PRN ×2 (11:01→18:08)
[2018-11-05] MEDS ORDERED: POTASSIUM CL 20 MEQ TAB PO ONE (14:15)
[2018-11-05] MEDS ORDERED: POTASSIUM CL 20 MEQ PKT PO ONE (14:45)
--- NOTE | 2018-11-05 15:21 | HOSPPROG ---
Hospitalist Progress Note Assessment/Plan: Sepsis (Acute) - Presenting with cough, weakness - CXR shows R sided infiltrate on admission - S/p IVF - Continue Levaquin, Day 4 - Blood cultures growing Strep Pneumo, repeat blood cultures drawn on 11/04 - Consulted ID, appreciate recs, recommending continuing Levaquin, transition to PO Bacteremia - Positive blood culture as above - Currently on Levaquin IV, as above Acute hypoxemic respiratory failure - 2/2 to PNA, PE, viral syndrome, asthma exacerbation - Wean 02 as tolerated Acute community-acquired, likely postviral, right lung pneumonia - CXR shows R sided infiltrate on admission - CT performed on 11/04 which showed severe R lung PNA w/o evidence of intrapulmonary abscess or empyema - Management as above Acute Pulmonary Embolism - Seen on CT on 11/04, L pulmonary embolism - Started on Lovenox 80 mg BID overnight, will continue for now - Plan to transition to oral AC, will discuss with CM about what medication patient can obtain Adenovirus infection causing URI and diarrhea - Supportive management with IVF, antitussive, antidiarrheal Asthma Exacerbation - Continue Prednisone 20 mg qd (day 4), nebs FEN: Regular, IVF Code: FULL DVT PPx: Lovenox Dispo: Pending clinical course Subjective: Patient reports continued cough, pain with deep breaths Objective: Vital Signs Temp Pulse Resp BP Pulse Ox 36.5 C 88 18 145/81 H 92 11/05/18 12:00 11/05/18 12:00 11/05/18 12:00 11/05/18 12:00 11/05/18 12:00 Laboratory Results 11/05/18 04:24 11/04/18 19:35 11/04/18 11/05/18 11/06/18 05:59 05:59 05:59 Intake Total 3760 800 Output Total 4500 4000 650 Balance -740 -3200 -650 PT 14.9 SEC (12.0-15.0) 11/02/18 11:57 INR 1.15 (0.83-1.16) 11/02/18 11:57 - Physical Exam Constitutional: chronically ill appearing, unkempt Eyes: PERRL Ears, Nose, Mouth, Throat: moist mucous membranes Cardiovascular: regular rate and rhythym Respiratory: reduced air movement Gastrointestinal: soft, non-tender abdomen Neurologic: AAOx3 Psychiatric: interacting appropriately ICD10 Worksheet Patient Problems: Problems Problem Status Onset Pneumonia Acute Asthma exacerbation Acute
--- NOTE | 2018-11-05 16:18 | PCMIDPN ---
Assessment/Plan: #Multilobar PNA and bacteremia with pneumococcus, lung exam a bit better today with more air movement, CT scan was personally reviewed by me which showed massive consolidation right middle and lower lobe, but no significant pleural effusion. Incidentally pulmonary embolus was identified last night. --pneumococcal sensi pending, available tomorrow morning --repeat blood cx yesterday, will monitor --tolerating PO levofloxacin # adenovirus: Contact and droplet precautions while hospitalized # PE identified ID on CT performed yesterday #PCN, cephlosporins: hives; azithromycin -->hives, SOB --discussed potential need to change to cephalosporin in case of resistance to FQ meds Levofloxacin 750mg PO daily #4 Microbiology 11/02/18 Respiratory Panel (PCR) Adenovirus 11/02/18 Blood cx: 2/2 Streptococcus Pneumoniae, sensi P 11/04/18 blood cx (2) pending HIV neg (gave patient result) Subjective: feeling a little better R side chest pressure but better Objective: Vital Signs Temp Pulse Resp BP Pulse Ox 36.5 C 88 18 145/81 H 92 11/05/18 12:00 11/05/18 12:00 11/05/18 12:00 11/05/18 12:00 11/05/18 12:00 Laboratory Results 11/05/18 04:24 11/04/18 19:35 11/04/18 11/05/18 11/06/18 05:59 05:59 05:59 Intake Total 3760 800 Output Total 4500 4000 650 Balance -740 -3200 -650 - Physical Exam General Appearance: alert, no apparent distress EENT: other (Fair dentition) Respiratory: crackles (Right lung field), No accessory muscle use Neck: supple Cardiac/Chest: regular rate, rhythm Abdomen: normal bowel sounds, non-tender, soft Pelvic Exam: No steven Skin: warm/dry, rash (Pinkness on upper chest, stable), No diaphoresis Neuro/Psych: alert, normal mood/affect, oriented x 3 - Time Spent With Patient Time Spent with Patient: greater than 35 minutes Time Spent with Patient: Greater than 35 minutes spent on this patients care, greater than 50% of time spent counseling, educating, and coordinating care regarding the above mentioned plan. ICD10 Worksheet Patient Problems: Problems Problem Status Onset Pneumonia Acute Asthma exacerbation Acute
[2018-11-05] MEDS: ZOLPIDEM TARTRATE 5 MG TAB PO PRN (20:56)
[2018-11-05] MEDS: MELATONIN 3 MG TAB PO SCH (20:56)
[2018-11-05] MEDS: guaiFENesin/CODEINE PHOS 10 ML UDCUP PO PRN (21:05)
[2018-11-06] MEDS: IPRATROPIUM/ALBUTEROL 3 ML DEYVIAL IH SCH ×4 (05:59→21:54)
[2018-11-06] MEDS: ENOXAPARIN 80 MG/0.8 ML SYR SC SCH ×2 (08:33→21:00)
[2018-11-06] MEDS: predniSONE 20 MG TAB PO SCH (08:33)
[2018-11-06] MEDS: ACETAMINOPHEN 325 MG TAB PO PRN (08:33)
[2018-11-06] MEDS: guaiFENesin/CODEINE PHOS 10 ML UDCUP PO PRN ×2 (08:34→20:59)
[2018-11-06] MEDS: FLUTICASONE/SALMETER 250/50MCG DISKUS IH SCH ×2 (10:27→21:54)
--- NOTE | 2018-11-06 12:35 | HOSPPROG ---
Hospitalist Progress Note Assessment/Plan: Sepsis (Acute) - Presenting with cough, weakness - CXR shows R sided infiltrate on admission - S/p IVF - Continue Levaquin PO, Day 5 of likely 7 day course - Blood cultures growing Strep Pneumo, repeat blood cultures drawn on 11/04 - Consulted ID, appreciate recs, recommending continuing Levaquin, transitioned to PO Bacteremia - Positive blood culture as above - Currently on Levaquin, as above Acute hypoxemic respiratory failure - 2/2 to PNA, PE, viral syndrome, asthma exacerbation - Wean 02 as tolerated Acute community-acquired, likely postviral, right lung pneumonia - CXR shows R sided infiltrate on admission - CT performed on 11/04 which showed severe R lung PNA w/o evidence of intrapulmonary abscess or empyema - Management as above Acute Pulmonary Embolism - Seen on CT on 11/04, L pulmonary embolism - Started on Lovenox 80 mg BID overnight, will continue for now - Plan to transition to oral AC, discuss with CM about what medication patient can obtain Adenovirus infection causing URI and diarrhea - Supportive management with IVF, antitussive, antidiarrheal Asthma Exacerbation - Complete Prednisone (day 5) today,continue nebs FEN: Regular, IVF Code: FULL DVT PPx: Lovenox Dispo: Pending clinical course, CM is working on placement due to patient's homelessness Subjective: Patient reports R sided rib pain with coughing Objective: Vital Signs Temp Pulse Resp BP Pulse Ox 36.4 C 84 18 137/86 H 91 L 11/06/18 12:00 11/06/18 12:00 11/06/18 12:00 11/06/18 12:00 11/06/18 12:00 Microbiology 11/02/18 13:02 Blood Culture - Final Blood Streptococcus Pneumoniae Laboratory Results 11/06/18 04:36 11/06/18 04:36 11/05/18 11/06/18 11/07/18 05:59 05:59 05:59 Intake Total 800 Output Total 4000 650 Balance -3200 -650 PT 14.9 SEC (12.0-15.0) 11/02/18 11:57 INR 1.15 (0.83-1.16) 11/02/18 11:57 - Physical Exam Constitutional: chronically ill appearing, unkempt Eyes: PERRL Cardiovascular: regular rate and rhythym Respiratory: reduced air movement (R side) Gastrointestinal: soft, non-tender abdomen Skin: normal color Neurologic: AAOx3 Psychiatric: interacting appropriately ICD10 Worksheet Patient Problems: Problems Problem Status Onset Pneumonia Acute Asthma exacerbation Acute
--- NOTE | 2018-11-06 16:32 | PCMIDPN ---
Assessment/Plan: Assessment/Plan: * Invasive pneumococcal disease associated with severe right-sided pneumonia: Review of Streptococcus pneumoniae MICHAELA shows MICHAELA of 2 to levofloxacin and 1 to moxifloxacin. Isolates with MCIHAELA of 2 to levofloxacin often have existing one- step mutation toward development of fluoroquinolone resistance. Concerned with the density of her pneumonia that this would potentially evolve over time. Review of allergy history reveals hives with beta lactams. Resistance profile reviewed with patient today. Will plan discussion tomorrow regarding other treatment considerations including challenging with beta-lactam such as ceftriaxone or transitioning to linezolid to which the isolate is susceptible and would allow for oral therapy based on its excellent oral bioavailability. She is not on any SSRIs that would preclude its use. Anticipate pneumonia will be slow to resolve based on presence of hepatization noted on CT scan of chest. Have asked microbiology lab to confirm susceptibility with repeat MICHAELA testing. * Adenovirus: Continue contact and droplet precautions. May represent precipitant infection associated with invasive pneumococcal disease. Time spent, greater than 35 min, of which greater than half was spent in education/counseling coordination of care related to invasive pneumococcal disease including coordination with microbiology lab regarding susceptibility profile of pneumococcal isolate. 11/06/18 16:28 11/06/18 16:35 Subjective: Patient complains of persistent right-sided pleuritic chest pain and cough which is nonproductive. No rash, nausea, vomiting or diarrhea with levofloxacin. Objective: Vital Signs Temp Pulse Resp BP Pulse Ox 36.9 C 90 16 120/76 92 11/06/18 15:06 11/06/18 15:06 11/06/18 15:06 11/06/18 15:06 11/06/18 15:06 Microbiology 11/02/18 13:02 Blood Culture - Final Blood Streptococcus Pneumoniae Laboratory Results 11/06/18 04:36 11/06/18 04:36 11/05/18 11/06/18 11/07/18 05:59 05:59 05:59 Intake Total 800 Output Total 4000 650 Balance -3200 -650 Levofloxacin # 5 Blood cultures 11/04/2018 no growth Blood cultures 11/02/2018 Streptococcus pneumoniae with resistance to clindamycin , erythromycin, tetracyclines; levofloxacin MICHAELA 2, moxifloxacin MICHAELA 1, linezolid MICHAELA 1 Respiratory pathogen PCR positive for adenovirus Laboratory Tests 11/04/18 19:35 HIV 1&2 Antibody NEGATIVE - Physical Exam General Appearance: alert, no apparent distress, non-toxic EENT: No scleral icterus, No thrush, No conjunctival petechiae Respiratory: crackles (Scattered crackles throughout right upper and mid lung field), No respiratory distress Cardiac/Chest: regular rate, rhythm Extremities: No inflammation Abdomen: non-tender, No distended Skin: No embolic lesions ICD10 Worksheet Patient Problems: Problems Problem Status Onset Pneumonia Acute Asthma exacerbation Acute
[2018-11-06] MEDS: ZOLPIDEM TARTRATE 5 MG TAB PO PRN (20:59)
[2018-11-06] MEDS: MELATONIN 3 MG TAB PO SCH (20:59)
[2018-11-07] MEDS: IPRATROPIUM/ALBUTEROL 3 ML DEYVIAL IH SCH ×4 (05:45→21:47)
[2018-11-07] MEDS: ACETAMINOPHEN 325 MG TAB PO PRN (09:41)
[2018-11-07] MEDS: ENOXAPARIN 80 MG/0.8 ML SYR SC SCH ×2 (09:43→22:07)
--- NOTE | 2018-11-07 11:01 | PCMIDPN ---
Assessment/Plan: #Multilobar PNA and bacteremia with pneumococcus, no murmur --plan ceftriaxone desensitization: reviewed w pharmacy, ICU cigar roller, Dr. Carrizales # adenovirus: Contact and droplet precautions while hospitalized # PE : Patient on anticoagulation #PCN, cephlosporins: hives; azithromycin -->hives, SOB --discussed potential need to change to cephalosporin in case of resistance to FQ meds Levofloxacin 750mg PO daily #6 Microbiology 11/02/18 Respiratory Panel (PCR) Adenovirus 11/02/18 Blood cx: 2/2 Streptococcus Pneumoniae 11/04/18 blood cx (2) no growth to date HIV neg Subjective: patient frustrated because continued non-productive cough Objective: Vital Signs Temp Pulse Resp BP Pulse Ox 36.9 C 79 16 140/103 H 95 11/07/18 07:34 11/07/18 07:34 11/07/18 07:34 11/07/18 07:34 11/07/18 07:34 Microbiology 11/02/18 13:02 Blood Culture - Final Blood Streptococcus Pneumoniae Laboratory Results 11/06/18 04:36 11/06/18 04:36 11/06/18 11/07/18 11/08/18 05:59 05:59 05:59 Output Total 650 Balance -650 - Physical Exam General Appearance: alert, no apparent distress EENT: pale conjunctiva, No scleral icterus, No thrush Respiratory: crackles (R hemithorax, better air movement), No accessory muscle use Neck: supple Cardiac/Chest: regular rate, rhythm, No systolic murmur Extremities: No pedal edema Abdomen: non-tender, soft Skin: warm/dry, No diaphoresis, No rash Neuro/Psych: alert, normal mood/affect, oriented x 3 - Time Spent With Patient Time Spent with Patient: greater than 35 minutes Time Spent with Patient: Greater than 35 minutes spent on this patients care, greater than 50% of time spent counseling, educating, and coordinating care regarding the above mentioned plan. ICD10 Worksheet Patient Problems: Problems Problem Status Onset Pneumonia Acute Asthma exacerbation Acute
[2018-11-07] MEDS: FLUTICASONE/SALMETER 250/50MCG DISKUS IH SCH ×2 (11:23→21:47)
--- NOTE | 2018-11-07 11:25 | ASMTCMCOM ---
CM Note CM Note Notes: Patient seen by ID today who has initiated Ceftriaxone desensitivation. Patient continues to require 2L O2 and is c/o non-productive cough. She will likely remain inpatient over the weekend. She will need to d/c directly to [facility] to be assigned to homeless case management services; she will then need a bed at [facility] or [facility] If necessary, O2 can be arranged at either place. If 1 night of hotel respite can bridge the gap, this might be possible, but only if her condition will dramatically benefit from a 24 hour period at a hotel. Case Management will follow. Date Signed: 11/07/2018 11:24 AM Electronically Signed By:Dominique Hunter RN
--- NOTE | 2018-11-07 11:58 | HOSPPROG ---
Hospitalist Progress Note Assessment/Plan: 1. Sepsis (Acute), resolving - CXR shows R sided infiltrate on admission - S/P IVF - Continue Levoquin, day #6 - Blood cultures growing Strep Pneumo, repeat blood cultures drawn on 11/04 neg to date -discussed care plan with ID Dr Gallegos 2. Bacteremia - Positive blood culture strep pneumo, repeat bd cxs neg to date - Currently on Levaquin, as above -transfer to SDU to desensitive to ceftriaxone per ID 3. Acute hypoxemic respiratory failure - 2/2 to PNA, PE, viral syndrome, asthma exacerbation - Wean 02 as tolerated 4. Acute community-acquired right lung pneumonia - CT performed on 11/04 which showed severe R lung PNA w/o evidence of intrapulmonary abscess or empyema - Management as above 5. Acute Pulmonary Embolism - Seen on CT on 11/04, L pulmonary embolism - Started on Lovenox 80 mg BID - Plan to transition to oral AC, need to verify with [facility] formulary 6. Adenovirus infection - Supportive management -droplet precautions 7. Asthma Exacerbation - nebs -steroids po 8. Anemia -stable 9. Homeless PCP ____ FULL CODE Has an active PE: lovenox Dispo: > 2 mdnts, will need IV abx bc of bacteremia, CM is working on options due to patient's homelessness Subjective: Feeling better with breathing but lots of coughing still. Very nervous re desensitization process. Denies n/v/d/CP. Objective: Vital Signs Temp Pulse Resp BP Pulse Ox 98.4 F 73 16 141/90 H 93 11/07/18 07:34 11/07/18 11:30 11/07/18 11:30 11/07/18 11:25 11/07/18 11:30 Microbiology 11/02/18 13:02 Blood Culture - Final Blood Streptococcus Pneumoniae Laboratory Results 11/06/18 04:36 11/06/18 04:36 11/05/18 11/06/18 11/07/18 11:59 11:59 11:59 Intake Total 800 Output Total 3550 Balance -2750 PT 14.9 SEC (12.0-15.0) 11/02/18 11:57 INR 1.15 (0.83-1.16) 11/02/18 11:57 - Time Spent With Patient Time Spent with Patient: greater than 35 minutes Time Spent with Patient: Greater than 35 minutes spent on this patients care, greater than 50% of time spent counseling, educating, and coordinating care regarding the above mentioned plan. - Physical Exam Constitutional: no apparent distress, not in pain Eyes: PERRL, anicteric sclera Ears, Nose, Mouth, Throat: moist mucous membranes, hearing normal Cardiovascular: regular rate and rhythym, no murmur, rub, or gallop Respiratory: no respiratory distress, other (coarse throughout, decreased L base with crackles) Gastrointestinal: normoactive bowel sounds, soft, non-tender abdomen, no palpable masses Psychiatric: interacting appropriately, not anxious, not encephalopathic ICD10 Worksheet Patient Problems: Problems Problem Status Onset Pneumonia Acute Asthma exacerbation Acute
[2018-11-07] MEDS ORDERED: D5W IV ONE ×6 (13:00→20:00)
[2018-11-07] MEDS ORDERED: CEFTRIAXONE IV ONE ×6 (13:00→20:00)
[2018-11-07] MEDS ORDERED: LORazepam 0.5 MG TAB PO PRN (16:03)
[2018-11-07] MEDS ORDERED: LORazepam 2 MG/ML INJ IVP PRN (16:04)
[2018-11-07] MEDS: guaiFENesin/CODEINE PHOS 10 ML UDCUP PO PRN (22:06)
[2018-11-07] MEDS: MELATONIN 3 MG TAB PO SCH (22:07)
[2018-11-07] MEDS: ZOLPIDEM TARTRATE 5 MG TAB PO PRN (22:07)
[2018-11-08] MEDS: IPRATROPIUM/ALBUTEROL 3 ML DEYVIAL IH SCH ×4 (05:39→22:57)
--- NOTE | 2018-11-08 09:44 | PCMIDPN ---
Assessment/Plan: #Multilobar PNA and bacteremia with pneumococcus, no murmur. Blood cultures show clearance. --tolerated ceftriaxone desensitization --start ceftriaxone 2gm IV daily, 11/21/18 stop date. I have not discussed duration or need for PICC line with patient yet. Care coordinated with case management --check CXR tomorrow # adenovirus: Contact and droplet precautions while hospitalized # PE : Patient on anticoagulation; if switch to could will need close monitoring of INR in light of coadministration of antibiotics #PCN, cephlosporins: hives; azithromycin -->hives, SOB --discussed potential need to change to cephalosporin in case of resistance to FQ meds, Abx #7 ceftriaxone 2gm IV daily #2 Microbiology 11/02/18 Respiratory Panel (PCR) Adenovirus 11/02/18 Blood cx: 11/22 Streptococcus Pneumoniae 11/04/18 blood cx (2) no growth to date HIV neg Subjective: patient very cheerful Objective: Vital Signs Temp Pulse Resp BP Pulse Ox 36.9 C 85 25 H 129/73 H 92 11/08/18 07:34 11/08/18 07:34 11/08/18 07:34 11/08/18 07:34 11/08/18 07:34 Laboratory Results 11/06/18 04:36 11/06/18 04:36 11/07/18 11/08/18 11/09/18 05:59 05:59 05:59 Intake Total 1514 Balance 1514 - Physical Exam General Appearance: alert, no apparent distress EENT: pale conjunctiva, other (no tongue swelling, thrush, ulceration), No scleral icterus Respiratory: other (still w intermittent crackles R side but much improved air movement), No accessory muscle use, No stridor, No wheezing Neck: supple Cardiac/Chest: regular rate, rhythm Extremities: No pedal edema Skin: normal color, warm/dry, No rash, No embolic lesions Neuro/Psych: alert, normal mood/affect, oriented x 3 - Time Spent With Patient Time Spent with Patient: greater than 35 minutes Time Spent with Patient: Greater than 35 minutes spent on this patients care, greater than 50% of time spent counseling, educating, and coordinating care regarding the above mentioned plan. ICD10 Worksheet Patient Problems: Problems Problem Status Onset Pneumonia Acute Asthma exacerbation Acute
[2018-11-08] MEDS: ENOXAPARIN 80 MG/0.8 ML SYR SC SCH ×2 (10:23→20:26)
[2018-11-08] MEDS: FLUTICASONE/SALMETER 250/50MCG DISKUS IH SCH ×2 (10:55→23:19)
[2018-11-08] MEDS: MELATONIN 3 MG TAB PO SCH (20:25)
[2018-11-08] MEDS: guaiFENesin/CODEINE PHOS 10 ML UDCUP PO PRN (20:25)
[2018-11-08] MEDS: ACETAMINOPHEN 325 MG TAB PO PRN (20:34)
[2018-11-08] MEDS: ZOLPIDEM TARTRATE 5 MG TAB PO PRN (20:34)
[2018-11-09] MEDS: IPRATROPIUM/ALBUTEROL 3 ML DEYVIAL IH SCH ×3 (05:28→17:21)
[2018-11-09] MEDS: FLUTICASONE/SALMETER 250/50MCG DISKUS IH SCH ×3 (09:52→21:10)
[2018-11-09] MEDS: ENOXAPARIN 80 MG/0.8 ML SYR SC SCH ×2 (10:35→21:10)
--- NOTE | 2018-11-09 11:19 | PCMIDPN ---
Assessment/Plan: #Multilobar PNA and bacteremia with pneumococcus, no murmur. Blood cultures show clearance. Chest x-ray a bit better today, O2 requirements stable at 2 L --ceftriaxone 2gm IV daily, 11/21/18 stop date (10 days ceftriaxone), will discuss with group whether could truncate a bit, with discharge 11/19/18. She will need to stay in house to complete her IV therapy. Patient is "on board" with staying in house for therapy. --ID will see patient every couple days --continue peripheral IV, hold off on PICC unless unable to get access # adenovirus: Contact and droplet precautions while hospitalized # PE : Patient on anticoagulation; if switch to could will need close monitoring of INR in light of coadministration of antibiotics # PCN, cephlosporins: hives; azithromycin -->hives, SOB: Tolerating cephalosporin since desensitization meds, Abx #8 ceftriaxone 2gm IV daily #3 Microbiology 11/02/18 Respiratory Panel (PCR) Adenovirus 11/02/18 Blood cx: 2/2 Streptococcus Pneumoniae 11/04/18 blood cx (2) no growth to date HIV neg Subjective: Patient is feeling like she is breathing easier, mucus is mobilizing and she is coughing up, no diarrhea via, no hives Objective: Vital Signs Temp Pulse Resp BP Pulse Ox 37.1 C 76 16 139/95 H 91 L 11/09/18 07:20 11/09/18 07:20 11/09/18 07:20 11/09/18 07:20 11/09/18 07:20 Laboratory Results 11/08/18 10:30 11/08/18 10:30 11/08/18 11/09/18 11/10/18 05:59 05:59 05:59 Intake Total 1514 Output Total 250 300 Balance 1514 -250 -300 - Physical Exam General Appearance: alert, no apparent distress, thin, other (Small ulceration crusted over right upper lip and left naris) EENT: pale conjunctiva, No scleral icterus Respiratory: other (Decreased air movement right hemithorax occasional crackle) , No accessory muscle use Neck: supple Cardiac/Chest: regular rate, rhythm Extremities: No pedal edema Skin: No rash Neuro/Psych: alert, normal mood/affect, oriented x 3 - Time Spent With Patient Time Spent with Patient: greater than 25 minutes Time Spent with Patient: Greater than 25 minutes spent on this patients care, greater than 50% of time spent counseling, educating, and coordinating care regarding the above mentioned plan. ICD10 Worksheet Patient Problems: Problems Problem Status Onset Pneumonia Acute Asthma exacerbation Acute
[2018-11-09] MEDS: FERRO-SEQUELS 65 MG TAB.ER PO SCH ×2 (12:02→21:10)
[2018-11-09] MEDS: MELATONIN 3 MG TAB PO SCH (21:10)
[2018-11-09] MEDS: guaiFENesin/CODEINE PHOS 10 ML UDCUP PO PRN (21:10)
[2018-11-09] MEDS: ZOLPIDEM TARTRATE 5 MG TAB PO PRN (21:10)
--- NOTE | 2018-11-09 22:51 | HOSPPROG ---
Hospitalist Progress Note Assessment/Plan: 1. Sepsis (Acute), resolving - CXR shows R sided infiltrate on admission - S/P IVF - stop Levoquin, day #7 today - Blood cultures growing Strep Pneumo, repeat blood cultures drawn on 11/04 neg to date -discussed care plan with ID Dr Gallegos 2. Bacteremia - Positive blood culture strep pneumo, repeat bd cxs neg to date - finished 7 days FQ today, start IV ceftriaxone today 3. Acute hypoxemic respiratory failure - 2/ to PNA, PE, viral syndrome, asthma exacerbation -02 as needed 4. Acute community-acquired right lung pneumonia - CT performed on 11/04 which showed severe R lung PNA w/o evidence of intrapulmonary abscess or empyema - Management as above 5. Acute Pulmonary Embolism - Seen on CT on 11/04, L pulmonary embolism - Lovenox 80 mg BID - Plan to transition to oral AC, need to verify with [facility] formulary options other than coumadin 6. Adenovirus infection -Supportive management -droplet precautions 7. Asthma Exacerbation -nebs -s/p steroids po, off now 8. Anemia -stable -check iron 9. Homeless 10. transaminitis -hep labs ordered per ID PCP ____ FULL CODE Has an active PE: lovenox Dispo: > 2 mdnts, will need IV abx bc of bacteremia, CM is working on options due to patient's homelessness Subjective: Feeling better, less anxious, back on medsurg. No v/d/SOB/CP. - Time Spent With Patient Time Spent with Patient: greater than 25 minutes Time Spent with Patient: Greater than 25 minutes spent on this patients care, greater than 50% of time spent counseling, educating, and coordinating care regarding the above mentioned plan. - Physical Exam Constitutional: no apparent distress, appears nourished, not in pain Eyes: anicteric sclera, EOMI Ears, Nose, Mouth, Throat: moist mucous membranes, hearing normal Cardiovascular: regular rate and rhythym, no murmur, rub, or gallop Respiratory: no respiratory distress, other (crackles R base, occ cough) Gastrointestinal: normoactive bowel sounds, soft, non-tender abdomen Psychiatric: interacting appropriately, not encephalopathic, flat affect ICD10 Worksheet Patient Problems: Problems Problem Status Onset Pneumonia Acute Asthma exacerbation Acute
--- NOTE | 2018-11-09 23:09 | HOSPPROG ---
Hospitalist Progress Note Assessment/Plan: 1. Sepsis (Acute), resolved - CXR shows R sided infiltrate on admission, improving on todays CXR (viewed/ interpreted by myself) - S/P IVF - stop Levoquin, completed 7 days - Blood cultures growing Strep Pneumo, repeat blood cultures drawn on 11/04 neg to date -discussed care plan with ID Dr Gallegos 2. Bacteremia - Positive blood culture strep pneumo, repeat bd cxs neg to date - finished 7 days FQ, IV ceftriaxone day #3 of 10 per ID 3. Acute hypoxemic respiratory failure - 2/ to PNA, PE, viral syndrome, asthma exacerbation -02 at 2L, will try to wean as able -inhalers scheduled, nebs prn 4. Acute community-acquired right lung pneumonia - CT performed on 11/04 which showed severe R lung PNA w/o evidence of intrapulmonary abscess or empyema - Management as above 5. Acute Pulmonary Embolism - Seen on CT on 11/04, L pulmonary embolism - Lovenox 80 mg BID since 11/04/2018 (today is day #5, OK for pradaxa transition) - pradaxa OK per [facility] formulary if coumadin contraindicated (not started bc of anticipated difficulty in managing bc of social situation/lack of housing/ transportation) -likely will need prior auth with [facility] prior to discharge, CM informed 6. Adenovirus infection -Supportive management -droplet precautions 7. Asthma Exacerbation, resolving -as above -s/p steroids po, off now 8. Anemia -stable -low iron -hemocult stools -suspect from poor intake and heavy menses (consider pelvic US as outpt to eval) -po iron started -request dietary consult to educate her re high iron food choices -will need FU as outpt -consider GI eval if HGB drops 9. Homeless -CM working on options -pt prefers to stay in [place] 10. transaminitis -hep labs ordered per ID, pending 11. s/p desensitization for ceftriaxone 11/07/2018 PCP ____ FULL CODE Has an active PE: lovenox, transition to pradaxa tomorrow AM Dispo: > 2 mdnts, will need IV abx bc of bacteremia for 1 more week, CM is working on options due to patient's homelessness Subjective: Feels better, no CP/SOB. Cough productive. Good appetite. No further D, no N/V. LMP 11/02/2018 last day, periods heavy/clots. Not a vegetarian but limited meat intake bc of homelessness. Objective: Vital Signs Temp Pulse Resp BP Pulse Ox 98.8 F 78 16 119/70 93 11/09/18 15:17 11/09/18 17:22 11/09/18 17:22 11/09/18 15:17 11/09/18 17:22 Laboratory Results 11/09/18 12:45 11/09/18 12:45 11/08/18 11/09/18 11/10/18 11:59 11:59 11:59 Intake Total 1514 1200 Output Total 250 300 Balance 1264 -300 1200 PT 14.9 SEC (12.0-15.0) 11/02/18 11:57 INR 1.15 (0.83-1.16) 11/02/18 11:57 - Time Spent With Patient Time Spent with Patient: greater than 25 minutes Time Spent with Patient: Greater than 25 minutes spent on this patients care, greater than 50% of time spent counseling, educating, and coordinating care regarding the above mentioned plan. - Pending Discharge Pending Discharge Within 48 Hours: No - Physical Exam Constitutional: no apparent distress, appears nourished, not in pain Eyes: anicteric sclera, EOMI Ears, Nose, Mouth, Throat: moist mucous membranes, hearing normal Cardiovascular: regular rate and rhythym, no murmur, rub, or gallop Respiratory: no respiratory distress, other (crackles R>>L, no rhonchi/wheezing) Gastrointestinal: normoactive bowel sounds, soft, non-tender abdomen, no palpable masses Skin: warm Psychiatric: interacting appropriately, not anxious, not encephalopathic, flat affect ICD10 Worksheet Patient Problems: Problems Problem Status Onset Pneumonia Acute Asthma exacerbation Acute
[2018-11-10 02:43] LABS: HEPATITIS B SURFACE ANTIGEN NEGATIVE (NEGATIVE)
[2018-11-10 02:59] LABS: HEPATITIS A ANTIBODY TOTAL NEGATIVE (NEGATIVE); HEPATITIS B CORE AB TOTAL NEGATIVE (NEGATIVE); HEPATITIS C ANTIBODY TOTAL NEGATIVE (NEGATIVE)
[2018-11-10] MEDS: IPRATROPIUM/ALBUTEROL 3 ML DEYVIAL IH PRN ×2 (09:29→16:32)
[2018-11-10] MEDS: FLUTICASONE/SALMETER 250/50MCG DISKUS IH SCH ×2 (09:45→21:31)
[2018-11-10] MEDS: DABIGATRAN ETEXILATE MESYL 150 MG CAP PO SCH ×2 (09:49→21:13)
[2018-11-10] MEDS: FERRO-SEQUELS 65 MG TAB.ER PO SCH ×2 (09:49→21:13)
--- NOTE | 2018-11-10 11:32 | HOSPPROG ---
Hospitalist Progress Note Assessment/Plan: DIAGNOSES: * Acute hypoxemic respiratory failure * Acute sepsis * Pneumococcal bacteremia * Acute community-acquired pneumonia * Adenovirus acute infection with respiratory symptoms and enteritis * Acute PE * Elevations of hepatic transaminases, likely due to adenovirus but will need to be followed for resolution. Initial hepatitis serologies negative but some still pending * Homelessness This patient at this point feels pretty much back entirely to normal. She is not short of breath, not coughing, having no pain, no fevers. Her digestive symptoms have completely resolved. She is breathing room air, up and walking easily eating well no nausea. She has had no fever since the day of her admission. Her bacteremia resolved quickly within 2 days. Her chest x-ray infiltrates which were extremely dense on admission are now dramatically improved. Her white blood cell count is normal. The current plan after having finished 7 days of Levaquin, appears to involve using Rocephin intravenously for an additional 10 days. The reasoning is due to the MICHAELA of Levaquin being at 2 and question of whether the patient could have developed single step resistance. At that point due to the patient's social issues that would leave her stuck in the hospital for another 9 days with no clinical indication other than to continue IV antibiotics as they apparently not available to her for some reason as an outpatient. Whether she truly needs another 10 days of antibiotics, I will review with Infectious Disease team. However if she does I would like to reassess for the possibility of some type of outpatient oral antibiotic or find some other way to give her outpatient IV antibiotic. The resources are dramatic and the inconvenience to the patient or significant as well. PLANS: Continue current IV Rocephin for the time being Review plans in detail with Infectious Disease today Continue respiratory and contact isolation due to her adenovirus SUBJECTIVE: Feels quite well No pain, no cough, no shortness of breath, ambulating easily, on room air. No nausea, eating well, bowels normal. Strength is normal. She is essentially asymptomatic at this point OBJECTIVE Vitals reviewed: No fever since the day of her admission on November 02 otherwise stable vitals Exam: alert oriented skin warm dry color ok resps not labored lungs clear BSs heart regular abd soft nondistended nontender, bowel sounds present limbs warm, no edema iv site ok Microbiology: Original blood cultures showed pneumococcus Repeat surveillance cultures 2 days later on November 04 are negative with no growth Adenovirus identified on respiratory pathogen PCR panel Imaging: I reviewed images from yesterday's chest x-ray which showed dramatic improvement in her infiltrate in the right lung compared to admission Laboratory data: White count now in the normal range at 9000 Continued improvement in liver enzymes Objective: Vital Signs Temp Pulse Resp BP Pulse Ox 36.4 C 76 16 124/66 H 92 11/10/18 08:15 11/10/18 08:15 11/10/18 08:15 11/10/18 08:15 11/10/18 08:15 Microbiology 11/04/18 13:00 Blood Culture - Final Blood 11/04/18 11:38 Blood Culture - Final Blood Laboratory Results 11/10/18 04:37 11/09/18 12:45 11/09/18 11/10/18 11/11/18 06:59 06:59 06:59 Intake Total 1200 Output Total 250 300 Balance -250 900 PT 14.9 SEC (12.0-15.0) 11/02/18 11:57 INR 1.15 (0.83-1.16) 11/02/18 11:57 ICD10 Worksheet Patient Problems: Problems Problem Status Onset Pneumonia Acute Asthma exacerbation Acute
--- NOTE | 2018-11-10 16:10 | ASMTCMCOM ---
CM Note CM Note Notes: Patient has made a very good recovery and feels near her baseline. She is still using 2L O2 and should probably have a room air challenge soon. Hospital medicine and ID are working on a d/c plan regarding the rest of her antibiotic therapy. CM can help assist with the plan; patient is homeless but this does not necessitate that she remain hospitalized. Date Signed: 11/10/2018 04:09 PM Electronically Signed By:Dominique Hunter RN
--- NOTE | 2018-11-10 17:03 | CPEKG ---
Test Reason : OPEN Blood Pressure : / mmHG Vent. Rate : 113 BPM Atrial Rate : 113 BPM P-R Int : 142 ms QRS Dur : 085 ms QT Int : 308 ms P-R-T Axes : 062 048 031 degrees QTc Int : 423 ms Sinus tachycardia Confirmed by Arnulfo Jackson ([id number]) on 11/10/2018 5:03:12 PM Referred By: Confirmed By:Arnulfo Jackson
[2018-11-10] MEDS: MELATONIN 3 MG TAB PO SCH (21:13)
[2018-11-10] MEDS: guaiFENesin/CODEINE PHOS 10 ML UDCUP PO PRN (21:18)
[2018-11-10] MEDS: ZOLPIDEM TARTRATE 5 MG TAB PO PRN (21:18)
[2018-11-11] MEDS: FLUTICASONE/SALMETER 250/50MCG DISKUS IH SCH (09:01)
[2018-11-11] MEDS: FERRO-SEQUELS 65 MG TAB.ER PO SCH (09:42)
[2018-11-11] MEDS: DABIGATRAN ETEXILATE MESYL 150 MG CAP PO SCH (09:42)
[2018-11-11 11:42] VITALS: BP 113/82
--- NOTE | 2018-11-11 15:15 | PDDCSUM ---
Discharge Summary Discharge Summary: DISCHARGE DIAGNOSES: * Acute hypoxemic respiratory failure * Acute sepsis * Pneumococcal bacteremia * Acute community-acquired pneumonia * Adenovirus acute infection with respiratory symptoms and enteritis * Acute PE * Elevations of hepatic transaminases, likely due to adenovirus but will need to be followed for resolution. Initial hepatitis serologies negative but some still pending * Homelessness CONSULTANTS: Dr. Arnulfo Cry PROCEDURES: CT scan of chest PICC catheter insertion HOSPITAL COURSE SUMMARY: This patient presented to the hospital with severe pneumonia and bacteremia and sepsis. She grew pneumococcal organism from blood cultures that was listed initially is all sensitive but the MICHAELA listed for Levaquin was 2. She received 7 days of Levaquin but then it was elected to give her a longer course of Rocephin to ensure that she did not have regrowth of any pneumococcus that may have taken on single step resistance from the Levaquin. Here in the hospital she has recovered very nicely. She was quite ill upon arrival but at this point feels much better, walking the hallways, no oxygen, no shortness of breath , eating well, no nausea, no other signs of complication. She did have a CT scan time of admission and this was to assess her pneumonia but she incidentally was identified as having acute pulmonary emboli on the left. Therefore she was started on oral anticoagulant here and she has tolerated that well. At this point she is felt stable for discharge to home. She has received instructions for avoiding injuries and follow-up care, including issues regarding her medications. PENDING TEST RESULTS: None MEDICATION CHANGES: Addition of Rocephin 2 g IV daily for another 5 days at outpatient infusion center Eliquis 5 mg twice daily FOLLOW-UP PLAN: With Dr. Arnulfo Cyr or Mattie Gallegos at the Infect[facility] Disease [facility] She is scheduled for daily Rocephin at the outpatient infusion center here starting tomorrow Greater than 35 minutes bedside and care coordination time today
--- NOTE | 2018-11-11 15:16 | ASMTDCNOTE ---
Case Management Discharge Discharge Order Complete? Answers: Yes Patient to Obtain Answers: Independently Medications Transportation Arranged Answers: Bus Tokens EMTALA Complete Answers: No Case Management Transport Answers: No Form Complete Faxed Final Orders Answers: Yes Agency/Facility Transfer Answers: Yes Report Printed & Faxed to Receiving Agency Family Notified Answers: No Discharge Comments Notes: Pts case discussed w/ Dr. Godfrey. Pt is being d/c'd today. Pt reports that she can come daily to the [facility] outpatient infusion center. CM met w/ pt and she would like to come daily at 1PM. CM was able to arrange it. Pt has a bus pass to get here. Pt reports that she will be staying w/ a friend. CM available for changes. Plan: Independent - [facility] outpatient infusion f/u Date Signed: 11/11/2018 03:15 PM Electronically Signed By:JODY Manuel
--- NOTE | 2018-11-11 15:16 | PCMIDPN ---
Assessment/Plan: Assessment/Plan: * Invasive pneumococcal disease associated with severe right-sided pneumonia: Marked clinical improvement with antibiotic therapy. Tolerating ceftriaxone well after desensitization. Anticipate 10 day course of ceftriaxone with stop date of 11/16/2018. Patient prefers to be discharged and returned to [address] [place] [address] for her remaining antibiotic therapy. She notes that she has bus past for daily transportation. Discussed with her that peripheral IV can only be utilized for IV antibiotics. No history of injection drug use. Side effects of ceftriaxone including allergic reactions, skin rash, drug fever, biliary sludging, and potential for changes in blood count/liver tests/kidney test discussed with patient today. Will have patient follow-up with Dr. Gallegos in our office next week. * Adenovirus: Continue contact and droplet precautions. May represent precipitant infection associated with invasive pneumococcal disease. Time spent, greater than 35 min, of which greater than half was spent in education/counseling/coordination of care related to ongoing antibiotic therapy with ceftriaxone including coordination of outpatient antibiotics and plan of care after hospital discharge. 11/11/18 15:11 11/11/18 15:12 11/11/18 15:16 Subjective: Patient feels significantly improved. No significant shortness of breath. Cough has decreased. No pleuritic chest pain. No skin rash or diarrhea with ceftriaxone. Objective: Vital Signs Temp Pulse Resp BP Pulse Ox 36.6 C 90 16 113/82 H 93 11/11/18 11:41 11/11/18 11:41 11/11/18 11:41 11/11/18 11:41 11/11/18 11:41 Laboratory Results 11/10/18 04:37 11/09/18 12:45 11/10/18 11/11/18 11/12/18 05:59 05:59 05:59 Intake Total 1200 Output Total 300 Balance 900 Ceftriaxone # 5, antibiotics # 10 - Physical Exam General Appearance: alert, no apparent distress EENT: No scleral icterus, No thrush, No conjunctival petechiae Respiratory: lungs clear, No respiratory distress Cardiac/Chest: regular rate, rhythm, No systolic murmur Abdomen: non-tender, No distended ICD10 Worksheet Patient Problems: Problems Problem Status Onset Pneumonia Acute Asthma exacerbation Acute
--- NOTE | 2018-11-11 15:16 | PDIAF ---
- Diagnosis Diagnosis: pneumonia, PE Code Status: Full Code - Medication Management Discharge Medications: electronically signed and located in the Home Medication List. - Orders Isolation Type: Contact Isolation, Droplet Isolation Diet Recommendation: no restrictions on diet Diet Texture: Regular Texture Diet Additional Instructions: Follow up with Dr Gallegos as recommended; notify her of any problems with your treatments Come to outpatient infusion room for your antibiotic doses as planned Avoid activities that might cause bleeding or bruising. If you have any bleeding or bruising put pressure on it or if you need help come to the ER to get bleeding stopped. - Follow Up Care Current Providers and Referrals: NONE *PRIMARY CARE P,. [Primary Care Provider] - As per Instructions
== END 2018-11-11 17:07 | disposition home or self-care (01) | DRG 720 ==
LOC: OBSVTOIN 12:39 → F3E 14:02 → F2N 11-07 17:21 → F3E 11-08 13:08
PROVIDERS: ADMIT Internal Medicine; ATTEND Internal Medicine
DX: A40.3 Sepsis due to Streptococcus pneumoniae (principal); J96.01 Acute respiratory failure with hypoxia; I26.99 Other pulmonary embolism without acute cor pulmonale; J18.8 Other pneumonia, unspecified organism; R78.81 Bacteremia; A08.2 Adenoviral enteritis; J45.909 Unspecified asthma, uncomplicated; Z59.0 Homelessness; Z72.0 Tobacco use; Z88.0 Allergy status to penicillin
CPT/HCPCS: 86704-90; 86708-90; 96374; G0472; J0696; J1650; J1956; J3370; J7512; Q9967

== ENCOUNTER → 2018-12-10 | Outpatient (CLI) | payer MEDICAID | LOC: FIMAGING 10:02 | PROVIDERS: ATTEND Family Medicine | DX: Z09 Encounter for follow-up examination after completed treatment for conditions other than malignant neoplasm (principal); J13 Pneumonia due to Streptococcus pneumoniae ==

== ENCOUNTER 2018-12-15 16:06 | Emergency (ER) | payer MEDICAID ==
--- NOTE | 2018-12-15 18:48 | EDPHY ---
H & P Stated Complaint: hx pna in oct/pe off eliquis this week/cough sob Time Seen by Provider: 12/15/18 18:47 - Personal History LMP (Females 10-55): 1-7 Days Ago Current Tetanus Diphtheria and Acellular Pertussis (TDAP): Yes Tetanus Vaccine Date: 2013 - Medical/Surgical History Hx Asthma: Yes Hx Chronic Respiratory Disease: No Hx Diabetes: No Hx Cardiac Disease: No Hx Renal Disease: Yes Hx Cirrhosis: No Hx Alcoholism: No Hx HIV/AIDS: No Hx Splenectomy or Spleen Trauma: No Other PMH: asthma, CKD, tubal ligation, CHRONIC BRONCHITIS, eustachian tubes as child - Social History Smoking Status: Current every day smoker Constitutional: Initial Vital Signs Temperature (C) 37.4 C 12/15/18 16:22 Heart Rate 92 12/15/18 16:22 Respiratory Rate 19 12/15/18 16:22 Blood Pressure 122/68 H 12/15/18 16:22 O2 Sat (%) 94 12/15/18 16:22 O2 Delivery Mode Nasal Cannula O2 (L/minute) 2 Allergies/Adverse Reactions: amoxicillin [Amoxicillin] Allergy (Verified 12/15/18 16:20) Hives azithromycin Allergy (Verified 12/15/18 16:20) Pt reports Hives cefaclor [From Ceclor] Allergy (Verified 12/15/18 16:20) Pt reports Hives cefixime [From Suprax] Allergy (Verified 12/15/18 16:20) Pt reports Hives Penicillins Allergy (Verified 12/15/18 16:20) Pt reports Hives Sulfa (Sulfonamide Antibiotics) Allergy (Verified 12/15/18 16:20) PT reports Hives Home Medications: Medication Instructions Recorded Albuterol Hfa Anes Only [Proair 2 puffs IH QID PRN #1 mdi 09/23/16 Hfa Icu (*)] Apixaban [Eliquis] 5 mg PO BID 2 Days #60 tab 11/11/18 Medical Decision Making - Diagnostics Imaging: Discussed imaging studies w/ call or contact centre manager Radiologist, I viewed and interpreted images myself ED Course/Re-evaluation: CHIEF COMPLAINT: Shortness of breath HISTORY OF PRESENT ILLNESS: The patient is an anticoagulated (Eliquis) 48 y/o female with a history of a PE and pneumonia complaining of shortness of breath. The patient was recently admitted for pneumonia. She was discharge home and had no symptoms. Last Saturday , 2 days ago, she ran out of Eliquis. After stopping Eliquis she developed the shortness of breath; she noticed that there was wheezing primarily on the left side. She did receive the influenza vaccination this year. No fever, headache, body aches, lightheadedness, chest pain, heart palpitations, cough, abdominal pain, urinary or bowel complaints, numbness, paresthesias. REVIEW OF SYSTEMS: A comprehensive 10 system review of systems is otherwise negative aside from elements mentioned in the history of present illness and medical decision making. PHYSICAL EXAM: HR, BP, O2 Sat, RR. Temp noted General Appearance: Alert, well hydrated, appropriate, and non-toxic appearing. Head: Atraumatic without scalp tenderness or obvious injury Eyes: Pupils equal, round, reactive to light and accommodation, EOMI, no trauma , no injection. Ears: Clear bilaterally, no perforation, normal landmarks Nose: Atraumatic, no rhinorrhea, clear. Throat: There is no erythema or exudates, no lesions, normal tonsils, mucus membranes moist. Neck: Supple, 2+ carotid upstroke, nontender, no lymphadenopathy. Respiratory: Diffuse coarse rhonchi throughout. No retractions, no distress, no wheezes, and no accessory muscle use. Cardiovascular: Regular rate and rhythm, no murmurs, rubs, or gallops. Bilateral carotid, radial, dorsalis pedis, and posterior tibial pulses intact. Good capillary refill all extremities. Gastrointestinal: Abdomen is soft, nontender, non-distended, no masses, no rebound, no guarding, no peritoneal signs. Musculoskeletal: Normal active ROM of all extremities, atraumatic. Neurological: Alert, appropriate, and interactive. The patient has normal DTRs and non-focal cranial nerves, motor, sensory, and cerebellar exam. Skin: No rashes, good turgor, no nodules on palpation. Past medical history: Asthma, CKD, bronchitis, PE Past surgical history: Tubal ligation Family history: Denies Social history: Transient, friend at bedside, not employed DIAGNOSTICS/PROCEDURES/CRITICAL CARE TIME: Chest CTA: Improving pneumonia, no PE. DIFFERENTIAL DIAGNOSIS: The differential diagnosis for the patient's shortness of breath and hypoxemia included but was not limited to pneumonia, myocardial infarction, acute mountain sickness, high altitude pulmonary edema, congestive heart failure, and pulmonary embolus. MEDICAL DECISION MAKING: The patient is an anticoagulated (Eliquis) 48 y/o female with a history of a PE and pneumonia presenting with diffuse shortness of breath after stopping Eliquis 3 days ago. On exam she has diffuse coarse rhonchi throughout. Chest CTA and labs ordered; DuoNeb administered. 2034: I spoke with Dr. Godfrey, radiologist, who reports that the patient's pneumonia is improving and there is no PE present. Patient also has a negative influenza swab. 2036: Reassessed patient and discussed laboratory and imaging findings. I have prescribed her Prednisone and an albuterol inhaler. Return precautions provided ; patient is comfortable with this plan. - Data Points Laboratory Results: 12/15/18 12/15/18 12/15/18 19:15 19:10 19:05 POC Hgb 11.9 gm/dL L gm/dL (12.6-16.3) POC Hct 35 % L % (38-47) POC Sodium 143 mEq/L mEq/L (135-145) POC Potassium 3.6 mEq/L mEq/L (3.3-5.0) POC Chloride 105 mEq/L mEq/L (97-110) POC Total CO2 25 mEq/L mEq/L (22-31) POC BUN 6 mg/dL L mg/dL (7-23) POC Creatinine 0.9 mg/dL mg/dL (0.6-1.0) POC Glucose 97 mg/dL mg/dL (70-100) Beta HCG, Qual NEGATIVE Nasal Influenza A PCR NEGATIVE FOR FLU A (NEGATIVE) Nasal Influenza B PCR NEGATIVE FOR FLU B (NEGATIVE) Medications Given: Discontinued Medications Albuterol/Ipratropium (Duoneb) 3 ml EDNOW ONE Stop: 12/15/18 18:59 Last Admin: 12/15/18 19:10 Dose: 3 ml Point of Care Test Results: Chemistry 12/15/18 19:15 POC Sodium 143 mEq/L mEq/L (135-145) POC Potassium 3.6 mEq/L mEq/L (3.3-5.0) POC Chloride 105 mEq/L mEq/L (97-110) POC Total CO2 25 mEq/L mEq/L (22-31) POC BUN 6 mg/dL L mg/dL (7-23) POC Creatinine 0.9 mg/dL mg/dL (0.6-1.0) POC Glucose 97 mg/dL mg/dL (70-100) ISTAT H&H 12/15/18 19:15 POC Hgb 11.9 gm/dL L gm/dL (12.6-16.3) POC Hct 35 % L % (38-47) Departure - Departure Disposition: Home, Routine, Self-Care Clinical Impression: Acute bronchitis Qualifiers: Bronchitis organism: other organism Qualified Code(s): J20.8 - Acute bronchitis due to other specified organisms Condition: Good Instructions: Acute Bronchitis (ED) Additional Instructions: 1. Take Prednisone as prescribed. 2. Use the inhaler as prescribed. 3. Please take Eliquis. 4. Follow up with your primary care physician within 72 hours for reevaluation. 5. Drink plenty of fluids. 6. Return to the emergency department immediately for high fever, severe headache or neck pain, difficulty breathing, abdominal pain, rash or other worsening of condition. Referrals: Twin You MD [Primary Care Provider] - As per Instructions Report Scribed for: Arnulfo Jackson Report Scribed by: Karissa Mast Date of Report: 12/15/18 Time of Report: 18:49
[2018-12-15] MEDS ORDERED: IPRATROPIUM/ALBUTEROL 3 ML DEYVIAL IH ONE (18:58)
[2018-12-15] MEDS ORDERED: OSELTAMIVIR PHOSPHATE 75 MG CAP PO ONE (19:06)
[2018-12-15] MEDS ORDERED: IOPAMIDOL (ISOVUE 370) 100 ML BTL IV ONE (19:27)
[2018-12-15] MEDS ORDERED: ALBUTEROL INH PREPACK MDI TAKEHOME ONE (20:28)
[2018-12-15 20:53] VITALS: BP 122/80
== END 2018-12-15 20:56 | disposition home or self-care (01) ==
DX: J20.8 Acute bronchitis due to other specified organisms (principal)
CPT/HCPCS: 82435-PO; 82565-PO; 82947-PO; 84132-PO; 84295-PO; 84520-PO; 85014-ER; Q9967

== ENCOUNTER 2019-03-28 15:13 | Emergency (ER) | payer MEDICAID | END 2019-03-28 15:54 | disposition home or self-care (01) ==

== ENCOUNTER 2019-04-05 18:07 | Emergency (ER) | payer MEDICAID | END 2019-04-05 19:19 | disposition home or self-care (01) ==